=== PATIENT | male | born 1995 | race Caucasian/White ===

== ENCOUNTER 2016-10-26 00:58 | Emergency (ER) | payer BC | END 2016-10-26 02:10 | disposition home or self-care (01) | LOC: ER 00:58 | DX: E87.6 Hypokalemia (principal); R42 Dizziness and giddiness; R20.0 Anesthesia of skin; R11.0 Nausea | CPT/HCPCS: 36415; 96374; J2060 ==

== ENCOUNTER 2016-10-27 23:17 | Emergency (ER) | payer BC | END 2016-10-28 02:26 | disposition home or self-care (01) | LOC: ER 23:17 | DX: R00.2 Palpitations (principal); R25.1 Tremor, unspecified; R07.89 Other chest pain | CPT/HCPCS: 36415 ==